=== PATIENT | female | born 1960 | race Caucasian/White ===

== ENCOUNTER 2019-10-16 15:09 | Emergency (ER) | payer SELFPAY ==
[2019-10-16 15:52] LABS: Absolute Lymphocytes (CBC) 2.6 K/uL (0.7-4.9); Basophils % 0.2 % (0-1.3); Hematocrit 40.9 % (36.0-45.0); Lymphocytes % 23.1 % (15.3-44.8); MPV 7.7 fL (7.6-11.3); RBC Red Blood Cell Count 4.75 M/uL (3.86-4.86)
[2019-10-16 16:09] LABS: ALT/SGPT 24 U/L (12-78); AST/SGOT 16 U/L (15-37); Albumin 3.6 g/dL (3.4-5.0); Alkaline Phosphatase 62 U/L (45-117); BUN Blood Urea Nitrogen 17 mg/dL (7-18); Bicarbonate 24 mmol/L (21-32); Bilirubin Direct < 0.1 mg/dL (0-0.2); Bilirubin Total 0.3 mg/dL (0.2-1.0); Glucose Level 111 mg/dL (74-106); Lipase 133 U/L (73-393); Potassium 3.3 mmol/L (3.5-5.1); Protein, Total 6.8 g/dL (6.4-8.2); Sodium Level 137 mmol/L (136-145)
[2019-10-16] MEDS ORDERED: ONDANSETRON 4 MG/2 ML VIAL ONE (16:10)
--- NOTE | 2019-10-16 16:53 | RAD REPORT ---
EXAM DESCRIPTION: CTAbdomen Pelvis W Contrast - 10/16/2019 4:30 pm CLINICAL HISTORY: Abdominal pain. ABD PAIN COMPARISON: <Comparisons> TECHNIQUE: Biphasic CT imaging of the abdomen and pelvis was performed with 100 ml non-ionic IV cont rast. All CT scans are performed using dose optimization technique as appropriate and may include automated exposure control or mA/KV adjustment according to patient size. FINDINGS: The lung bases are clear.Cholecystectomy. The liver, spleen, pancreas, adrenal glands and kidneys are within normal limits. Mild fluid is seen along the right liver edge. No bowel obstruction, free air, or abscess. Several thickened small bowel loops are present in the l ower abdomen/right lower quadrant with surrounding inflammation. These have the appearance of ileal l oops. Mild free fluid is seen in the pelvis. No evidence of significant lymphadenopathy. No suspicious bony findings. IMPRESSION: Inflammation is seen involving the ileal small bowel loops in the right lower quadrant w ith thickening and mild surrounding fluid. This likely indicates inflammatory or infectious ileitis.
[2019-10-16] MEDS ORDERED: metroNIDAZOLE 500 MG TABLET ONE (17:31)
[2019-10-16] MEDS ORDERED: CIPROFLOXACIN HCL 500 MG TAB ONE (17:31)
[2019-10-16] MEDS ORDERED: POTASSIUM CL SA 10 MEQ TAB PO ONE (17:31)
--- NOTE | 2019-10-16 18:12 | ER ---
Nurse's Notes [facility] Name: Prisca Alvarenga Age: 59 yrs Sex: Female : 1960 Arrival Date: 10/16/2019 Time: 15:11 Bed 6 Private MD: Rohan De Jesus E Diagnosis: Abdominal and pelvic pain;Ileitis Presentation: 10/16 15:17 Presenting complaint: Patient states: Upper middle abd pain since Monday. Recently la1 finished Augmentin for sinus infection. Transition of care: patient was not received from another setting of care. Onset of symptoms was October 16, 2019. Risk Assessment: Do you want to hurt yourself or someone else? Patient reports no desire to harm self or others. Initial Sepsis Screen: Does the patient meet any 2 criteria? No. Patient's initial sepsis screen is negative. Does the patient have a suspected source of infection? No. Patient's initial sepsis screen is negative. Care prior to arrival: None. 15:17 Method Of Arrival: Ambulatory la1 15:17 Acuity: PHILLIP 3 la1 Historical: - Allergies: 15:17 Sulfa (Sulfonamide Antibiotics); la1 - PMHx: 15:17 Hypertension; la1 - Immunization history:: Adult Immunizations up to date. - Social history:: Smoking status: Patient/guardian denies using tobacco. - Ebola Screening: : No symptoms or risks identified at this time. Screenin:36 Abuse screen: Denies threats or abuse. Denies injuries from another. Nutritional rv screening: No deficits noted. Tuberculosis screening: No symptoms or risk factors identified. Fall Risk None identified. Assessment: 15:35 General: Appears in no apparent distress. comfortable, Behavior is calm, cooperative. rv Pain: Complains of pain in abdomen Pain currently is 3 out of 10 on a pain scale. Neuro: Level of Consciousness is awake, alert, obeys commands, Oriented to person, place, time, situation. Cardiovascular: Patient's skin is warm and dry. Respiratory: Airway is patent. GI: Bowel sounds present X 4 quads. Abd is soft and non tender X 4 quads. : No signs and/or symptoms were reported regarding the genitourinary system. EENT: No signs and/or symptoms were reported regarding the EENT system. Derm: Skin is intact. Musculoskeletal: No signs and/or symptoms reported regarding the musculoskeletal system. Vital Signs: 15:18 BP 144 / 92; Pulse 96; Resp 16; Temp 98.4; Pulse Ox 100% on R/A; Weight 102.06 kg; la1 Height 5 ft. 1 in. (154.94 cm); 16:30 BP 141 / 90; Pulse 91; Resp 18; Pulse Ox 100% ; rv 17:30 BP 143 / 92; Pulse 89; Resp 18; Pulse Ox 100% on R/A; rv 18:30 BP 140 / 89; Pulse 86; Resp 16; Pulse Ox 100% on R/A; rv 15:18 Body Mass Index 42.51 (102.06 kg, 154.94 cm) la1 ED Course: 15:11 Patient arrived in ED. mr 15:11 Rhoan De Jesus MD is Private Physician. mr 15:17 Nahum oCles MD is Attending Physician. kdr 15:17 Arm band placed on right wrist. la1 15:18 Triage completed. la1 15:19 Jameel Shah RN is Primary Nurse. rv 15:35 Patient has correct armband on for positive identification. Bed in low position. Call rv light in reach. Side rails up X 1. Pulse ox on. NIBP on. 15:43 Inserted saline lock: 20 gauge in right forearm, using aseptic technique. Blood rv collected. 16:30 CT Abd/Pelvis - IV Contrast Only In Process Unspecified. EDMS 18:09 Rohan De Jesus MD is Referral Physician. kdr 18:10 Jacek House MD is Referral Physician. kdr 18:49 No provider procedures requiring assistance completed. Patient did not have IV access rv during this emergency room visit. Administered Medications: 16:12 Drug: Zofran 4 mg Route: IVP; Site: right forearm; rv 18:47 Follow up: Response: No adverse reaction rv 17:35 Drug: Cipro 500 mg Route: PO; rv 18:47 Follow up: Response: No adverse reaction rv 17:36 Drug: Potassium Chloride 40 mEq Route: PO; rv 18:47 Follow up: Response: No adverse reaction rv 17:36 Drug: Flagyl 500 mg Route: PO; rv 18:47 Follow up: Response: No adverse reaction rv 18:28 Drug: Bentyl 20 mg Route: IM; Site: right gluteus; aa5 18:47 Follow up: Response: No adverse reaction rv Outcome: 18:11 Discharge ordered by . kdr 18:49 Discharged to home ambulatory. rv 18:49 Condition: good 18:49 Discharge instructions given to patient, Instructed on discharge instructions, follow up and referral plans. medication usage, Demonstrated understanding of instructions, follow-up care, medications, Prescriptions given X 5 18:49 Patient left the ED. rv Signatures: Dispatcher [employer] EDMS Nahum Coles MD MD kdr Rivera, Mary mr HiVenecia RN RN aa5 Vernon Chiu RN RN la1 Jameel Shah RN RN rv Corrections: (The following items were deleted from the chart) 15:21 15:17 Presenting complaint: Patient states: Upper middle abd pain since Monday. aa5 Recently finished auhmentin for sinus infection la1
--- NOTE | 2019-10-16 18:13 | EDPHYS ---
Physician Documentation [facility] Name: Prisca Alvarenga Age: 59 yrs Sex: Female : 1960 Arrival Date: 10/16/2019 Time: 15:11 Bed 6 Private MD: Rohan De Jesus E ED Physician Nahum Coles HPI: 10/16 16:07 This 59 yrs old Female presents to ER via Ambulatory with complaints of kdr Abdominal Pain. 16:07 The patient presents with abdominal pain that is diffuse, Now mostly RLQ and kdr epigastric. Onset: The symptoms/episode began/occurred yesterday, at 08:00. The symptoms do not radiate. Associated signs and symptoms: Pertinent positives: diarrhea, nausea. The symptoms are described as achy, crampy, dull, vague, waxing/waning. Modifying factors: The symptoms are alleviated by nothing, the symptoms are aggravated by nothing. Severity of pain: At its worst the pain was incapacitating in the emergency department the pain has resolved and did so just prior to arrival. The patient has not experienced similar symptoms in the past. The patient has not recently seen a physician. Historical: - Allergies: 15:17 Sulfa (Sulfonamide Antibiotics); la1 - PMHx: 15:17 Hypertension; la1 - Immunization history:: Adult Immunizations up to date. - Social history:: Smoking status: Patient/guardian denies using tobacco. - Ebola Screening: : No symptoms or risks identified at this time. ROS: 16:07 Constitutional: Negative for fever, chills, and weight loss, Eyes: Negative for injury, kdr pain, redness, and discharge, ENT: Negative for injury, pain, and discharge, Neck: Negative for injury, pain, and swelling, Cardiovascular: Negative for chest pain, palpitations, and edema, Respiratory: Negative for shortness of breath, cough, wheezing, and pleuritic chest pain, Back: Negative for injury and pain, : Negative for injury, bleeding, discharge, and swelling, MS/Extremity: Negative for injury and deformity, Skin: Negative for injury, rash, and discoloration, Neuro: Negative for headache, weakness, numbness, tingling, and seizure activity. Psych: Negative for depression, anxiety, suicide ideation, homicidal ideation, and hallucinations, Allergy/Immunology: Negative for hives, rash, and allergies, Endocrine: Negative for neck swelling, polydipsia, polyuria, polyphagia, and marked weight changes, Hematologic/Lymphatic: Negative for swollen nodes, abnormal bleeding, and unusual bruising. 16:07 Abdomen/GI: Positive for abdominal pain, nausea, Loose stool , Negative for diarrhea, black/tarry stool, rectal pain, rectal bleeding, flatulence. Exam: 16:07 Constitutional: This is a well developed, well nourished patient who is awake, alert, kdr and in no acute distress. Head/Face: Normocephalic, atraumatic. Eyes: Pupils equal round and reactive to light, extra-ocular motions intact. Lids and lashes normal. Conjunctiva and sclera are non-icteric and not injected. Cornea within normal limits. Periorbital areas with no swelling, redness, or edema. Neck: Trachea midline, no thyromegaly or masses palpated, and no cervical lymphadenopathy. Supple, full range of motion without nuchal rigidity, or vertebral point tenderness. No Meningismus. Chest/axilla: Normal chest wall appearance and motion. Nontender with no deformity. No lesions are appreciated. Cardiovascular: Regular rate and rhythm with a normal S1 and S2. No gallops, murmurs, or rubs. Normal PMI, no JVD. No pulse deficits. Respiratory: Lungs have equal breath sounds bilaterally, clear to auscultation and percussion. No rales, rhonchi or wheezes noted. No increased work of breathing, no retractions or nasal flaring. Back: No spinal tenderness. No costovertebral tenderness. Full range of motion. Skin: Warm, dry with normal turgor. Normal color with no rashes, no lesions, and no evidence of cellulitis. MS/ Extremity: Pulses equal, no cyanosis. Neurovascular intact. Full, normal range of motion. Neuro: Awake and alert, GCS 15, oriented to person, place, time, and situation. Cranial nerves II-XII grossly intact. Motor strength 5/5 in all extremities. Sensory grossly intact. Cerebellar exam normal. Normal gait. Psych: Awake, alert, with orientation to person, place and time. Behavior, mood, and affect are within normal limits. 16:07 Abdomen/GI: Inspection: obese Bowel sounds: active, diminished, in all quadrants, Palpation: soft, mild abdominal tenderness, in the epigastric area and right lower quadrant. Vital Signs: 15:18 BP 144 / 92; Pulse 96; Resp 16; Temp 98.4; Pulse Ox 100% on R/A; Weight 102.06 kg; la1 Height 5 ft. 1 in. (154.94 cm); 16:30 BP 141 / 90; Pulse 91; Resp 18; Pulse Ox 100% ; rv 17:30 BP 143 / 92; Pulse 89; Resp 18; Pulse Ox 100% on R/A; rv 18:30 BP 140 / 89; Pulse 86; Resp 16; Pulse Ox 100% on R/A; rv 15:18 Body Mass Index 42.51 (102.06 kg, 154.94 cm) la1 MDM: 16:07 Data reviewed: vital signs, nurses notes, lab test result(s), radiologic studies. kdr Counseling: I had a detailed discussion with the patient and/or guardian regarding: the historical points, exam findings, and any diagnostic results supporting the discharge/admit diagnosis, lab results, radiology results, the need for outpatient follow up. 17:14 Physician consultation: Jacek House MD was called at 17:15, was contacted at 17:15, [facility] regarding consult, patient's condition, and will see patient in ED, immediately. 18:11 Patient medically screened. [facility] 10/16 15:31 Order name: Basic Metabolic Panel; Complete Time: 17:04 [facility] 10/16 15:31 Order name: CBC with Diff; Complete Time: 17:04 [facility] 10/16 15:31 Order name: Creatinine for Radiology; Complete Time: 17:04 [facility] 10/16 15:31 Order name: Hepatic Function; Complete Time: 17:04 [facility] 10/16 15:31 Order name: Lipase; Complete Time: 17:04 [facility] 10/16 16:06 Order name: CT Abd/Pelvis - IV Contrast Only; Complete Time: 17:04 [facility] 10/16 15:31 Order name: IV Saline Lock; Complete Time: 16:09 [facility] 10/16 15:31 Order name: Labs collected and sent; Complete Time: 16:09 kdr Administered Medications: 16:12 Drug: Zofran 4 mg Route: IVP; Site: right forearm; rv 18:47 Follow up: Response: No adverse reaction rv 17:35 Drug: Cipro 500 mg Route: PO; rv 18:47 Follow up: Response: No adverse reaction rv 17:36 Drug: Potassium Chloride 40 mEq Route: PO; rv 18:47 Follow up: Response: No adverse reaction rv 17:36 Drug: Flagyl 500 mg Route: PO; rv 18:47 Follow up: Response: No adverse reaction rv 18:28 Drug: Bentyl 20 mg Route: IM; Site: right gluteus; aa5 18:47 Follow up: Response: No adverse reaction rv Disposition: 10/16/19 18:11 Discharged to Home. Impression: Abdominal and pelvic pain, Ileitis. - Condition is Stable. - Prescriptions for Bentyl 20 mg Oral Tablet - take 1 tablet by ORAL route every 6 hours As needed; 20 tablet. Cipro 500 mg Oral Tablet - take 1 tablet by ORAL route every 12 hours for 10 days; 20 tablet. Flagyl 500 mg Oral Tablet - take 1 tablet by ORAL route every 6 hours for 10 days; 40 tablet. Pepcid 20 mg Oral Tablet - take 1 tablet by ORAL route every 12 hours for 5 days; 10 tablet. Tramadol 50 mg Oral Tablet - take 1 tablet by ORAL route every 8 hours as needed; 12 tablet. - Medication Reconciliation Form, Thank You Letter, Antibiotic Education, Prescription Opioid Use form. - Follow up: Rohan De Jesus MD; When: 2 - 3 days; Reason: If symptoms return, Further diagnostic work-up, Recheck today's complaints, Continuance of care, Re-evaluation by your physician. Follow up: Jacek House MD; When: Monday; Reason: If symptoms return, Further diagnostic work-up, Recheck today's complaints, Continuance of care, Re-evaluation by your physician. - Problem is new. - Symptoms have improved. Signatures: Dispatcher [employer] EDKY Nahum Coles MD MD kdr Venecia Do RN RN aa5 Vernon Chiu RN RN la1 Jameel Shah RN RN rv Corrections: (The following items were deleted from the chart) 18:49 18:11 10/16/2019 18:11 Discharged to Home. Impression: Abdominal and pelvic pain; rv Ileitis. Condition is Stable. Forms are Medication Reconciliation Form, Thank You Letter, Antibiotic Education, Prescription Opioid Use. Follow up: Rohan De Jesus; When: 2 - 3 days; Reason: If symptoms return, Further diagnostic work-up, Recheck today's complaints, Continuance of care, Re-evaluation by your physician. Follow up: Jacek House; When: Monday; Reason: If symptoms return, Further diagnostic work-up, Recheck today's complaints, Continuance of care, Re-evaluation by your physician. Problem is new. Symptoms have improved. kdr
[2019-10-16] MEDS ORDERED: DICYCLOMINE HCL 20 MG/2 ML AMP IM ONE (19:00)
[2019-10-16 20:25] VITALS: TEMP 98.4; O2SAT 100
[2019-10-16 20:28] VITALS: BP 140/89
== END 2019-10-16 18:49 | disposition home or self-care (01) ==
LOC: ER 15:09
DX: K52.9 Noninfective gastroenteritis and colitis, unspecified (principal); Z88.2 Allergy status to sulfonamides
CPT/HCPCS: 36415; 74177; 80048; 80076; 83690; 85025; 96372; 96374; 99284; J0500; J2405; Q9967